=== PATIENT | male | born 1985 | race Caucasian/White ===

== ENCOUNTER 2019-03-14 01:50 | Emergency (ER) | payer BC ==
[~2019-03-14] VITALS: Ht 185.4 cm; Wt 64.9 kg
[~2019-03-14 01:50] MED LIST: CITALOPRAM HBR20 MG PO; OMEPRAZOLE40 MG PO
--- NOTE | 2019-03-14 03:58 | Diagnostic Imaging Report ---
EXAMINATION: CHEST 2 VIEWS INDICATION: ^CHEST PAIN / HX OF PNEUMO ^[id number] ^[id number] COMPARISON: 03/24/2016 FINDINGS: PA and lateral views TUBES and LINES: None. LUNGS: Hyperinflated lungs. Bilateral upper lobe scarring. Mildly increased hazy opacification of the left midlung and left lower lung field. PLEURA: No pleural effusion or pneumothorax. HEART AND MEDIASTINUM: The cardiomediastinal silhouette is unremarkable. BONES AND SOFT TISSUES: No acute osseous lesion. Soft tissues are unremarkable. UPPER ABDOMEN: No free air under the diaphragm. IMPRESSION: Hyperinflated lungs, suggestive of emphysematous changes. Bilateral upper lobe scarring. Mildly increased hazy opacification of the left midlung and left lower lung field. Underlying pneumonia cannot be excluded. Signed by: Dr. Jaylen Espana MD on 03/14/2019 3:54 AM
--- NOTE | 2019-03-14 04:00 | Diagnostic Imaging Report ---
EXAM: Abdomen 1 View INDICATION: ^CONSTIPATION ^[id number] ^0236 COMPARISON: None FINDINGS: Nonobstructive bowel gas pattern. No signs of pneumoperitoneum. Large colonic stool burden. No acute osseous abnormality. IMPRESSION: 1. Nonobstructive bowel gas pattern. 2. Large colonic stool burden, consistent with history of constipation. Signed by: Dr. Jaylen Espana MD on 03/14/2019 3:57 AM
[2019-03-14] MEDS ORDERED: BISACODYL 5 MG TAB EC PO ONE (04:45)
[2019-03-14] MEDS ORDERED: CITRATE OF MAGNESIA 300ML BOTTLE PO ONE (04:45)
[2019-03-14] MEDS ORDERED: BISACODYL 10 MG SUPP PR ONE (04:45)
[2019-03-14] MEDS ORDERED: COLACE100 M1 PO (05:16)
[2019-03-14] MEDS ORDERED: AZITHROMYCIN250 MG PO (05:16)
[2019-03-14 05:38] VITALS: BP 124/90
== END 2019-03-14 05:46 | disposition home or self-care (01) ==
LOC: ER 02:10
DX: R10.9 Unspecified abdominal pain (principal); K59.00 Constipation, unspecified
CPT/HCPCS: 71046; 74018; 93005; 99283

== ENCOUNTER 2019-04-22 01:25 | Emergency (ER) | payer BC ==
[~2019-04-22] VITALS: Ht 185.4 cm; Wt 64.9 kg
[~2019-04-22 01:25] MED LIST changes: +AZITHROMYCIN250 MG PO; +COLACE100 M1 PO
--- OUTSIDE RECORDS SUMMARY | 2019-04-22 01:27 | XMS REPORT ---
Author Author [facility] Address Unknown Phone Unavailable Care Team Providers Care Access Clinician Name Role Phone Mary Kay MATTHEWS Unavailable Unavailable Problems This patient has no known problems. Allergies, Adverse Reactions, Alerts This patient has no known allergies or adverse reactions. Medications This patient has no known medications. Results Test Description Test Time Test Comments Text Results Atomic Results Result Comments ABDOMEN-1VIEW (KUB) 2019-03-14 03:55:00 [place] [id number] Patient Name: FREDERIC CLEMENS MR #: [id number] : 1985 Age/Sex: 33/M Req #: [id number] Adm Physician: Ordered by: MARIAA MATTHEWS MD Report #: [id number] Location: ER Room/Bed: Procedure: [id number] DX/ABDOMEN-1VIEW (KUB) Exam Date: 03/14/19 Exam Time: 235 REPORT STATUS: Signed EXAM: Abdomen 1 View INDICATION: CONSTIPA TION [id number] COMPARISON: None FINDINGS: Nonobstructive bowel gas pattern. No signs of pneumoperitoneum. Large colonic stool burden. No acute osseous abnormality. IMPRESSION: 1. Nonobstructive bowel gas pattern. 2. Large colonic stool burden, consistent with history of constipation. Signed by: Dr. Jaylen Ortiz MD on 03/14/2019 3:57 AM Dictated By: JAYLEN ORTIZ MD [id number] Transcribed By: CAROLANN on 03/14/19356 COPY TO: MARIAA MATTHEWS MD CHEST 2 VIEWS 2019-03-14 03:51:00 [place] [id number] Patient Name: FREDERIC CLEMENS MR #: [id number] : 1985 Age/Sex: 33/M Req #: [id number] Adm Physician: Ordered by: MARIAA MATTHEWS MD Report #: [id number] Location: ER Room/Bed: Procedure: [id number] DX/CHEST 2 VIEWS Exam Date: 03/14/19 Exam Time: 235 REPORT STATUS: Signed EXAMINATION: CHEST 2 VIEWS INDICATION: CHEST PAIN / HX OF PNEUMO [id number] COMPARISON: 03/24/2016 FINDINGS: PA and lateral views TUBES and LINES: None. LUNGS: Hyperinflated lungs. Bilateral upper lobe scarring. Mildly increased hazy opacification of the left midlung and left lower lung field. PLEURA: No pleural effusion or pneumothorax. HEART AND MEDIASTINUM: The cardiomediastinal silhouette is unremarkable. BONES AND SOFT TISSUES: No acute osseous lesion. Soft tissues are unremarkable. UPPER ABDOMEN: No free air under the diaphragm. IMPRESSION: Hyperinflated lungs, suggestive of emphysematous changes. Bilateral upper lobe scarring. Mildly increased hazy opacification of the left midlung and left lower lung field. Underlying pneumonia cannot be excluded. Signed by: Dr. Jaylen Ortiz MD on 03/14/2019 3:54 AM Dictated By: JAYLEN ORTIZ MD 3 Transcribed By: CAROLANN on 03/14/19353 COPY TO: MARIAA MATTHEWS MD
--- NOTE | 2019-04-22 01:50 | NUR ---
PT PLACED IN RM 1 FOR AIRBORNE ISOLATION PRECAUTIONS. ISOLATION SLING PLACED ON OUTSIDE OF RM 1 DOOR.
[2019-04-22 02:35] LABS: BASOPHILS # (AUTO) 0.1 (0.0-0.1); EOSINOPHILS # (AUTO) 0.6 (0.0-0.4); EOSINOPHILS % 6.2 % (0.0-6.0); HEMATOCRIT 50.4 % (38.2-49.6); HEMOGLOBIN 16.9 g/dL (14.0-18.0); LYMPHOCYTES # (AUTO) 2.5 (1.0-3.2); LYMPHOCYTES % 24.6 % (18.0-39.1); MEAN CORPUSCULAR HEMOGLOBIN 30.1 pg (28-32); MEAN CORPUSCULAR HGB CONC 33.5 g/dL (31-35); MEAN CORPUSCULAR VOLUME 89.8 fL (81-99); MONOCYTES # (AUTO) 0.8 (0.2-0.8); MONOCYTES % 8.3 % (4.4-11.3); NEUTROPHILS % 59.6 % (38.7-80.0); PLATELET COUNT 356 x10e3/uL (140-360); RED BLOOD COUNT 5.61 x10e6/uL (4.3-5.7); RED CELL DISTRIBUTION WIDTH 13.2 % (11.7-14.4)
[2019-04-22 02:45] LABS: INR 0.87; PROTHROMBIN TIME 12.3 seconds (11.9-14.5)
[2019-04-22 02:46] LABS: PARTIAL THROMBOPLASTIN TIME 30.7 seconds (23.8-35.5)
[2019-04-22 02:55] LABS: ALANINE AMINOTRANSFERASE 23 IU/L (0-55); ALBUMIN 3.6 g/dL (3.5-5.0); ALBUMIN/GLOBULIN RATIO 0.9 (0.8-2.0); ALKALINE PHOSPHATASE 116 IU/L (40-150); ANION GAP 15.7 mmol/L (8-16); BLOOD UREA NITROGEN 8 mg/dL (7-26); BUN/CREATININE RATIO 10 (6-25); CALCIUM 9.2 mg/dL (8.4-10.2); CARBON DIOXIDE 23 mmol/L (22-29); CHLORIDE 105 mmol/L (98-107); CREATINE KINASE 204 IU/L (30-200); CREATININE, SERUM 0.84 mg/dL (0.72-1.25); EST GLOMERULAR FILTRATION RATE > 60 ML/MIN (60-); GLUCOSE 89 mg/dL (74-118); POTASSIUM 3.7 mmol/L (3.5-5.1); SODIUM 140 mmol/L (136-145)
--- NOTE | 2019-04-22 02:55 | NUR ---
RADIOLOGY AT BEDSIDE FOR CXR.
--- NOTE | 2019-04-22 03:11 | Diagnostic Imaging Report ---
Examination: Single AP view of the chest. COMPARISON: 03/14/2019 INDICATION: Hemoptysis DISCUSSION: The lungs remain hyperinflated with biapical pleural-parenchymal scar, similar to that noted on comparison. Interval resolution of patchy left mid and lower lung zone airspace disease. No new consolidation or effusion. Cardiomediastinal contour and pulmonary vasculature are otherwise within normal limits. No acute osseous abnormality. IMPRESSION: Stable emphysematous changes and biapical scar. Interval resolution of patchy left mid and lower lung zone opacities relative to 03/14/2019. No new consolidations. Signed by: Dr. Juan Jose Ferreira M.D. on 04/22/2019 3:08 AM
[2019-04-22 04:13] VITALS: BP 109/63
== END 2019-04-22 04:23 | disposition home or self-care (01) ==
LOC: ER 01:25
DX: R04.2 Hemoptysis (principal); F41.9 Anxiety disorder, unspecified; K21.9 Gastro-esophageal reflux disease without esophagitis; F17.210 Nicotine dependence, cigarettes, uncomplicated
CPT/HCPCS: 36415; 71045; 80053; 82550; 82553; 84484; 85025; 85610; 85730; 87040; 93005; 99284